=== PATIENT | female | born 1970 | race Two or more races ===

== ENCOUNTER 2018-03-10 23:06 | Emergency (ER) | payer MEDICAID | END 2018-03-10 23:28 | disposition home or self-care (01) | LOC: ED 23:22 | DX: Z53.21 Procedure and treatment not carried out due to patient leaving prior to being seen by health care provider (principal) ==

== ENCOUNTER 2021-04-01 16:56 | Emergency (ER) | payer SELFPAY ==
[~2021-04-01] VITALS: Ht 152.4 cm; Wt 66.8 kg
[2021-04-01 17:45] LABS: BASOPHILS % (AUTO) 1 % (0-1); EOSINOPHILS % (AUTO) 4 % (1-7); LYMPHOCYTES % (AUTO) 30 % (22-44); MEAN CORPUSCULAR HEMOGLOBIN 30.3 pg (27.0-34.8); MEAN CORPUSCULAR HGB CONC 34.3 g/dL (32.4-35.8); MEAN PLATELET VOLUME 8.4 fL (7.4-10.4); MONOCYTES % (AUTO) 6 % (2-9); NEUTROPHILS % (AUTO) 60 % (42-75); PLATELET COUNT 258 x10^3/uL (130-400); RED BLOOD COUNT 4.37 x10^6/uL (3.82-5.3)
[2021-04-01 17:46] LABS: MD NO
[2021-04-01 17:56] LABS: ANION GAP 4 mmol/L (5-15); CALCIUM 8.7 mg/dL (8.5-10.1); CHLORIDE 113 mmol/L (98-107); CREATININE 1.04 mg/dL (0.55-1.02)
--- NOTE | 2021-04-01 20:52 | NUR ---
REPORT TO NIXON FLEMING.
[2021-04-01] MEDS ORDERED: BENZONATATE 100 MG CAPSULE ONE (20:54)
[2021-04-01] MEDS ORDERED: ALBUTEROL SULFATE 2.5 MG/3 ML ONE (20:54)
[2021-04-01] MEDS ORDERED: BENZONATATE 100 MG CAPSULE PO ONE (21:00)
[2021-04-01] MEDS ORDERED: ALBUTEROL SULFATE 2.5 MG/3 ML NPPB ONE (21:00)
[2021-04-01 21:26] VITALS: BP 107/68
--- NOTE | 2021-04-01 21:27 | NUR ---
PT RESTING IN [facility]. AWAITING US
== END 2021-04-01 22:03 | disposition home or self-care (01) ==
LOC: ED 21:09
DX: J20.9 Acute bronchitis, unspecified (principal); R94.31 Abnormal electrocardiogram [ECG] [EKG]; F17.210 Nicotine dependence, cigarettes, uncomplicated
CPT/HCPCS: 36415; 71045; 80048; 82962; 85025; 85379; 93005; 94640; 99285; 99406; J7613

== ENCOUNTER 2021-05-24 00:09 | Emergency (ER) | payer MEDICAID ==
[~2021-05-24] VITALS: Ht 149.9 cm; Wt 60.1 kg
--- NOTE | 2021-05-24 00:15 | NUR ---
PT STATE WHEN SHE BLOWS HER NOSE, IT'S YELLOW/GREEN SNOT THAT COMES OUT.
--- NOTE | 2021-05-24 00:31 | NUR ---
Patient presents to ER c/o cough, congestion, chills, and a THOMAS x four days but "it has gotten real bad over the last 36-48 hours. I feel like I got hit by a freight train." Patient is a 4 cigarette/day smoker and has "respiratory problems" which she uses albuterol for. States the albuterol has not helped. +COVID vaccine. Patient is in NAD. Respirations even and unlabored.
[2021-05-24] MEDS ORDERED: IBUPROFEN 600 MG TABLET ONE (00:52)
[2021-05-24] MEDS ORDERED: BENZONATATE 100 MG CAPSULE ONE (00:52)
[2021-05-24] MEDS ORDERED: BENZONATATE 100 MG CAPSULE PO ONE (01:00)
[2021-05-24] MEDS ORDERED: IBUPROFEN 600 MG TABLET PO ONE (01:00)
[2021-05-24 01:58] VITALS: BP 119/80
== END 2021-05-24 02:00 | disposition home or self-care (01) ==
LOC: ED 00:31
DX: J20.9 Acute bronchitis, unspecified (principal); R07.81 Pleurodynia
CPT/HCPCS: 71045; 99284; J7512